=== PATIENT | female | born 1955 | race Caucasian/White ===

== ENCOUNTER → 2019-04-17 | Outpatient (CLI) | payer MEDICARE, BC | LOC: MC.RAD 10:40 | DX: Z12.31 Encounter for screening mammogram for malignant neoplasm of breast (principal) ==

== ENCOUNTER → 2021-11-17 | Outpatient (CLI) | payer MEDICARE | LOC: COL.RAD 11:45 | DX: M48.02 Spinal stenosis, cervical region (principal); R90.82 White matter disease, unspecified; G35 Multiple sclerosis; G43.009 Migraine without aura, not intractable, without status migrainosus; E55.9 Vitamin D deficiency, unspecified; R41.89 Other symptoms and signs involving cognitive functions and awareness; M79.642 Pain in left hand; M79.7 Fibromyalgia | CPT/HCPCS: A9575 ==

== ENCOUNTER → 2023-11-19 | Outpatient (CLI) | payer MEDICARE, BC | LOC: MC.RAD 09:17 | DX: Z12.31 Encounter for screening mammogram for malignant neoplasm of breast (principal) ==